=== PATIENT | male | born 1990 | race Two or more races ===

== ENCOUNTER 2020-11-08 01:20 | Emergency (ER) | payer OTHER ==
[~2020-11-08] VITALS: Ht 180.3 cm; Wt 101.6 kg
[~2020-11-08 01:20] MED LIST: IBUPROFEN800 MG PO
[2020-11-08] MEDS ORDERED: MUPIROCIN22 GM TOP (02:35)
[2020-11-08] MEDS ORDERED: CEPHALEXIN500 M1 PO (02:35)
== END 2020-11-08 02:46 ==
LOC: ER 01:20
DX: N47.1 Phimosis (principal)

== ENCOUNTER 2021-06-26 23:01 | Emergency (ER) | payer OTHER ==
[~2021-06-26] VITALS: Ht 180.3 cm; Wt 95.7 kg
[~2021-06-26 23:01] MED LIST changes: +CEPHALEXIN500 M1 PO; +MUPIROCIN22 GM TOP
== END 2021-06-27 06:35 ==
LOC: ER 23:01
DX: U07.1 COVID-19 (principal); J02.9 Acute pharyngitis, unspecified; R50.9 Fever, unspecified; R53.81 Other malaise

== ENCOUNTER 2021-10-13 21:12 | Emergency (ER) | payer OTHER | END 2021-10-13 23:03 | disposition home or self-care (01) | LOC: ER 21:12 | DX: S13.4XXA Sprain of ligaments of cervical spine, initial encounter (principal); W16.012A Fall into swimming pool striking water surface causing other injury, initial encounter; Y93.9 Activity, unspecified; Y92.838 Other recreation area as the place of occurrence of the external cause ==

== ENCOUNTER 2022-12-13 14:45 | Emergency (ER) | payer OTHER ==
[~2022-12-13] VITALS: Ht 167.6 cm; Wt 81.6 kg
[~2022-12-13 14:45] MED LIST changes: +DICLOFENAC SODI75 MG PO; +METFORMIN HCL500 M4 PO
== END 2022-12-13 18:44 | disposition home or self-care (01) ==
LOC: ER 14:45
DX: J06.9 Acute upper respiratory infection, unspecified (principal); E11.9 Type 2 diabetes mellitus without complications; Z79.84 Long term (current) use of oral hypoglycemic drugs